=== PATIENT | male | born 1990 | race Two or more races ===

== ENCOUNTER 2019-02-20 15:52 | Emergency (ER) | payer OTHER ==
[~2019-02-20] VITALS: Ht 180.3 cm; Wt 113.4 kg
[2019-02-20] MEDS ORDERED: NKM (16:07)
[2019-02-20] MEDS ORDERED: ATIVAN1 MG ORAL (16:26)
--- NOTE | 2019-02-20 16:28 | Emergency Room Report ---
History of Present Illness General Chief Complaint: General Complaint Source: Patient Present Illness HPI 28-year-old male with a history of recurrent alcohol addiction presents today for help in his withdrawal symptoms. The patient states for the past 4 days he has been try to cut back from drinking beer. Says that for the past several months he has been drinking 30 beers a day. States that he gets withdrawal symptoms including heart palpitations and feeling irritable that has resolved by drinking beer. States that he has had this problem in the past and has come off it using Librium and Ativan and is requesting a refill of his medications today in addition to community resources. Denies any current n/v/f/c/d, abd pain, back pain, neck pain, photophobia, phonophobia, CP, SOB or headache. Allergies: Coded Allergies: No Known Allergies (Unverified , 02/20/19) Patient History Past Medical History: see triage record Past Surgical History: none Pertinent Family History: none Reviewed Nursing Documentation: PMH: Agreed; PSxH: Agreed Nursing Documentation-PMH Past Medical History: No Stated History Review of Systems All Other Systems: negative except mentioned in HPI Physical Exam Vital Signs Date Time Temp Pulse Resp B/P (MAP) Pulse Ox O2 Delivery O2 Flow Rate FiO2 02/20/19 16:01 99.0 94 18 140/89 96 Room Air Sp02 EP Interpretation: reviewed, normal General Appearance: no apparent distress, alert, GCS 15, non-toxic Head: normocephalic, atraumatic Eyes: bilateral eye normal inspection, bilateral eye PERRL ENT: hearing grossly normal, normal pharynx, no angioedema, normal voice Neck: full range of motion, supple/symm/no masses Respiratory: chest non-tender, lungs clear, normal breath sounds, speaking full sentences Cardiovascular #1: regular rate, rhythm, no edema Musculoskeletal: gait/station normal Neurologic: alert, oriented x3, responsive, motor strength/tone normal, sensory intact, speech normal Psychiatric: judgement/insight normal, memory normal, mood/affect normal, no suicidal/homicidal ideation Skin: normal color, no rash, warm/dry, well hydrated Medical Decision Making PA Attestation Dr. Ventura is my supervising physician with whom patient management has been discussed with. 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 Patient has no signs of neurological compromise and answering questions appropriately. Patient states that he is currently trying to cut back and is requesting medication to help him with his anxiety from withdrawals as well as community resource packet as far as where he can go to help his alcohol addiction. The patient appears stable has benign physical exam at this time. I discussed with him that he will need to have a structured treatment plan that is monitored by a medical provider and will provide him a community resource packet. I did check his cures report which shows no narcotic prescriptions written last 12 months. Patient will go home with prescription of Ativan was advised with adverse reactions to Ativan and alcohol combined together. He is aware of this risk and will follow up with provider from the resource packet. Last Vital Signs Date Time Temp Pulse Resp B/P (MAP) Pulse Ox O2 Delivery O2 Flow Rate FiO2 02/20/19 16:01 99.0 94 18 140/89 96 Room Air Disposition: HOME, SELF-CARE Condition: Stable Scripts Lorazepam* (ATIVAN*) 1 Mg Tablet 1 MG ORAL THREE TIMES A DAY for 5 Days, #15 TAB Prov: Aldo Ha 02/20/19 Patient Instructions: Alcohol Withdrawal Additional Instructions: Patient is to follow-up with community resources or his primary care provider within the next 2-3 days for management of your alcohol addiction. Please use medication as directed. Please return to the ER should he have any worsening symptoms which include palpitations, altered level consciousness, chest pain, shortness of breath, muscle twitches, seizures, worsening anxiety, suicidal or homicidal ideations. Aldo Ha Feb 20, 2019 16:28
--- NOTE | 2019-02-20 16:30 | NUR ---
ED Nurse Note: pt walked in c/o anxiety and alcohol withdrawal req librium, pt states he is alcoholic, drink every day, states he had 24 oz beers x 9 today. pt states he had vomiting episode about an hour ago but currently denies nausea. pt AA&ox4, gcs=15, skin warm and dry, resp even and unlabored on RA, -n/v/d, ambulates w/steady gait, will cont monitor.
[2019-02-20 16:36] VITALS: BP 140/89
--- NOTE | 2019-02-20 16:36 | NUR ---
ED Nurse Note: pt cleared to be d/c per ER provider, pt discharge and aftercare instruction provided w/ prescription, pt education done via discussion and handout, pt advised to follow up with pcp or return to ed if sx worsen or new sx develop, pt verbalized understanding and agrees with plan, vss, ambulatory w/steady gait, left w/ all belongings.
[2019-02-20 16:37] VITALS: BP 140/84
== END 2019-02-20 18:40 | disposition home or self-care (01) ==
LOC: EMR 16:36
DX: F10.280 Alcohol dependence with alcohol-induced anxiety disorder (principal)
CPT/HCPCS: 99282